=== PATIENT | female | born 1970 ===

== ENCOUNTER 2017-01-02 15:21 | Emergency (ER) | payer OTHER ==
[2017-01-02 15:21] VITALS: BMI 29.0
[2017-01-02 15:27] VITALS: BP 129/83; PULSE 83; RESP 18; TEMP 98.4; O2SAT 97
--- NOTE | 2017-01-02 15:55 | C.PDOC ---
History Of Present Illness 46 year old female presents to the ED with complaints of cough, nasal congestion , frontal headache, and subjective fever. Patient notes symptoms began 2 weeks ago but with one daily dose of Advil the symptoms had improved but worsened last night. She notes she has sick contacts, her children are flu-like symptoms and has pain to the tip of the nose and associated redness and swelling. Patient denies diarrhea, vomiting, or shortness of breath. Time Seen by Provider: 01/02/17 15:32 Chief Complaint (Nursing): Cough, Cold, Congestion History Per: Patient History/Exam Limitations: no limitations Onset/Duration Of Symptoms: Hrs (symptoms worsened last night ), Persistent (2 weeks) Current Symptoms Are (Timing): Still Present Recent travel outside of the [place]: No Past Medical History Reviewed: Historical Data, Nursing Documentation, Vital Signs Vital Signs: Last Vital Signs Temp 98.4 F 01/02/17 15:23 Pulse 83 01/02/17 15:23 Resp 18 01/02/17 15:23 BP 129/83 01/02/17 15:23 Pulse Ox 97 01/02/17 16:25 Family History: States: Unknown Family Hx - Social History Hx Tobacco Use: No Hx Alcohol Use: No Hx Substance Use: No - Immunization History Hx Tetanus Toxoid Vaccination: No Hx Influenza Vaccination: Yes (6 months ago) Hx Pneumococcal Vaccination: No Review Of Systems Constitutional: Positive for: Fever (subjective fever ). Negative for: Chills, Sweats ENT: Positive for: Nose Congestion Cardiovascular: Negative for: Chest Pain, Palpitations Respiratory: Positive for: Cough. Negative for: Shortness of Breath Gastrointestinal: Negative for: Nausea, Vomiting, Abdominal Pain, Diarrhea Neurological: Positive for: Headache (frontal headache ) Physical Exam - Physical Exam Appears: Non-toxic, No Acute Distress, Other (face appears flushed ) Skin: Warm, Dry Head: Atraumatic Eye(s): bilateral: Other (patients eyes appear watery; conjuctiva injected ) Ear(s): Bilateral: TM Erythema Nose: Tenderness (tenderness to the tip of the nose consistent with pimple ) Oral Mucosa: Moist Throat: Erythema, No Exudate Neck: Supple Chest: Symmetrical, No Deformity Cardiovascular: Rhythm Regular Extremity: Normal ROM, No Tenderness Neurological/Psych: Oriented x3 ED Course And Treatment O2 Sat by Pulse Oximetry: 97 (room air ) Medical Decision Making Medical Decision Making: Patient agreed with supportive care. Disposition Counseled Patient/Family Regarding: Diagnosis, Need For Followup - Disposition Referrals: [facility] at [facility] [Outside] Disposition: HOME/ ROUTINE Disposition Time: 15:54 Condition: STABLE Additional Instructions: Kait lisa mina. Tamkathy puede beber t con miel y limn (siempre y cuando no son alrgicos). Hacer zac mezcla de miel, limn y jengibre y utilizarlo para calmar la garganta y la tos. Seguimiento en la clnica o con kelly mdico habitual. Vuelva al emrgency con cualquier queja adicional. Instructions: Upper Respiratory Infection (ED) Forms: Gen Discharge Inst Kinyarwanda - POA Present On Arrival: None - Clinical Impression Clinical Impression: Viral disease, Influenza-like illness - Scribe Statement The provider has reviewed the documentation as recorded by the Scribe Jesenia Harper All medical record entries made by the Scribe were at my direction and personally dictated by me. I have reviewed the chart and agree that the record accurately reflects my personal performance of the history, physical exam, medical decision making, and the department course for this patient. I have also personally directed, reviewed, and agree with the discharge instructions and disposition.
== END 2017-01-02 16:15 | disposition home or self-care (01) ==
LOC: C.ER 15:21
DX: B34.9 Viral infection, unspecified (principal)

== ENCOUNTER 2018-05-24 09:57 | Emergency (ER) | payer OTHER, SELFPAY ==
[2018-05-24 09:57] VITALS: BMI 29.7
[2018-05-24] MEDS ORDERED: Lidocaine 5% Patch TD STA (11:17)
[2018-05-24] MEDS ORDERED: Naproxen 550 mg Tab PO STA (11:17)
[2018-05-24] MEDS ORDERED: Lidocaine 5% Patch TD ONE (12:00)
[2018-05-24] MEDS ORDERED: Naproxen 550 mg Tab PO ONE (12:00)
--- NOTE | 2018-05-24 12:05 | C.PDOC ---
Time Seen by Provider: 05/24/18 10:45 Chief Complaint (Nursing): Hip Pain Past Medical History Family History: States: Unknown Family Hx - Social History Hx Tobacco Use: No Hx Alcohol Use: No Hx Substance Use: No - Immunization History Hx Tetanus Toxoid Vaccination: No Hx Influenza Vaccination: No Hx Pneumococcal Vaccination: No Disposition - Disposition Disposition: HOME/ ROUTINE Disposition Time: 12:00 Condition: STABLE Additional Instructions: Vaya a kelly mdico o la clnica en 1-3 henry sin falta, para mas evaluacin. [place] los medicamentos cindi indicado. Volver a la casey de emergencia en cualquier momento si los sntomas persisten o empeoran. Prescriptions: Naproxen [Naprosyn] 1 tab PO BID PRN #20 tab PRN Reason: Pain Instructions: Sciatica (DC) Print Language: SERBIAN
--- NOTE | 2018-05-24 12:05 | C.PDOC ---
History Of Present Illness 47 year old female presents to the ED for evaluation of right buttock pain that began last night. She notes the pain is worse with movement. Patient reports she fell approximately 1 month ago though had no pain after the fall. Denies fever, nausea, vomiting, sensory changes, abdominal pain, urinary or bowel incontinence, pain with BM, perirectal pain, dysuria, or any other associated symptoms. Time Seen by Provider: 05/24/18 10:45 Chief Complaint (Nursing): Hip Pain History Per: Patient History/Exam Limitations: no limitations Onset/Duration Of Symptoms: Days Current Symptoms Are (Timing): Still Present Past Medical History Reviewed: Historical Data, Nursing Documentation, Vital Signs Family History: States: Unknown Family Hx - Social History Hx Tobacco Use: No Hx Alcohol Use: No Hx Substance Use: No - Immunization History Hx Tetanus Toxoid Vaccination: No Hx Influenza Vaccination: No Hx Pneumococcal Vaccination: No Review Of Systems Except As Marked, All Systems Reviewed And Found Negative. Constitutional: Negative for: Fever Gastrointestinal: Negative for: Nausea, Vomiting, Abdominal Pain Genitourinary: Negative for: Dysuria, Incontinence (urinary or bowel. ) Neurological: Negative for: Weakness, Numbness, Incoordination Physical Exam - Physical Exam Appears: Well, Non-toxic, No Acute Distress Skin: Normal Color, Warm, Dry Head: Atraumatic, Normacephalic Eye(s): bilateral: Normal Inspection, EOMI Nose: Normal Oral Mucosa: Moist Neck: Normal ROM, Supple Chest: Symmetrical, No Deformity Cardiovascular: Rhythm Regular Respiratory: Normal Breath Sounds, No Rales, No Rhonchi, No Wheezing Gastrointestinal/Abdominal: Normal Exam, Soft, No Tenderness Back: No CVA Tenderness, No Vertebral Tenderness, Other ((+) right buttock tenderness.) Extremity: Normal ROM Neurological/Psych: Oriented x3, Normal Speech, Normal Motor, Normal Sensation ED Course And Treatment O2 Sat by Pulse Oximetry: 100 (RA) Pulse Ox Interpretation: Normal - Other Rad Hip X-ray X-Ray: Viewed By Me, Read By Radiologist Interpretation: FINDINGS: BONES: Normal. No fracture. JOINTS: Normal. SOFT TISSUES: Normal. OTHER FINDINGS: None. IMPRESSION: Normal radiographs of right hip. Progress Note: Plan: Lidoderm. Naproxen. X-ray RT Hip w/ pelvis. On reassessment, patient resting comfortably, no back pain, no fever, no bony tenderness, no numbness, no weakness, no abdominal pain. Patient is ambulatory in the emergency department with no discomfort. Patient was instructed to follow up with physician/clinic in 1-2 days for further evaluation or return to ED if symptoms persist or worsen. Disposition - Disposition Disposition: HOME/ ROUTINE Disposition Time: 13:00 Condition: STABLE Additional Instructions: Vaya a kelly mdico o la clnica en 1-3 henry sin falta, para mas evaluacin. [place] los medicamentos cindi indicado. Volver a la casey de emergencia en cualquier momento si los sntomas persisten o empeoran. 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 - Scribe Statement The provider has reviewed the documentation as recorded by the Scribe (Marifer Tubbs) All medical record entries made by the Scribe were at my direction and personally dictated by me. I have reviewed the chart and agree that the record accurately reflects my personal performance of the history, physical exam, medical decision making, and the department course for this patient. I have also personally directed, reviewed, and agree with the discharge instructions and disposition.
[2018-05-24 12:12] VITALS: BP 132/75; PULSE 67; TEMP 98.3; O2SAT 100
--- NOTE | 2018-05-24 12:25 | RAD ---
PROCEDURE: Right Hip Radiographs. HISTORY: pain COMPARISON: None. FINDINGS: BONES: Normal. No fracture. JOINTS: Normal. SOFT TISSUES: Normal. OTHER FINDINGS: None. IMPRESSION: Normal radiographs of right hip.
[2018-05-24 12:28] VITALS: RESP 16
== END 2018-05-24 12:26 | disposition home or self-care (01) ==
LOC: C.ER 09:57
DX: G57.00 Lesion of sciatic nerve, unspecified lower limb (principal)

== ENCOUNTER 2018-08-10 10:30 | Emergency (ER) | payer OTHER ==
[2018-08-10 10:48] VITALS: BMI 24.5
[2018-08-10 12:05] LABS: SQUAMOUS EPITHIAL 3 /hpf (0-5); URINE BILIRUBIN NEGATIVE (NEGATIVE); URINE BLOOD 1+ (NEGATIVE); URINE CLARITY Clear (Clear); URINE COLOR Yellow (YELLOW); URINE GLUCOSE (UA) NORMAL (Normal); URINE LEUKOCYTE ESTERASE TRACE Leu/uL (Negative); URINE PROTEIN NEGATIVE (NEGATIVE); URINE UROBILINOGEN NORMAL mg/dL (0.2-1.0)
[2018-08-10 13:12] VITALS: BP 104/70; PULSE 77; RESP 18; TEMP 97.4; O2SAT 97
--- NOTE | 2018-08-10 13:44 | RAD ---
Date of service: 08/10/2018 HISTORY: rule out pneumonia COMPARISON: No prior. TECHNIQUE: Chest PA and lateral FINDINGS: LUNGS: No active pulmonary disease. PLEURA: No significant pleural effusion identified. No pneumothorax apparent. CARDIOVASCULAR: No aortic atherosclerotic calcification present. Normal cardiac size. No pulmonary vascular congestion. OSSEOUS STRUCTURES: Thoracic spondylosis present VISUALIZED UPPER ABDOMEN: Normal. OTHER FINDINGS: None. IMPRESSION: No active disease.
--- NOTE | 2018-08-10 14:48 | C.PDOC ---
History Of Present Illness 47 y/o female presents to the ER complaining of fever, headache, dry cough, and generalized myalgias x 1 day. Denies flu shot. Patient has sick contact with grandson at home. Positive sick contact of grandson who was diagnosed with Flu A yesterday. Has not taken any medications for symptoms. Tolerating PO. Denies abdominal pain, N/V/D, dizziness, vision changes, CP, SOB, neck pain, back pain, urinary symptoms, or any other complaint. Time Seen by Provider: 08/10/18 11:17 Chief Complaint (Nursing): Cough, Cold, Congestion History Per: Patient History/Exam Limitations: no limitations Onset/Duration Of Symptoms: Days Current Symptoms Are (Timing): Still Present Severity: Moderate Past Medical History Reviewed: Historical Data, Nursing Documentation, Vital Signs Vital Signs: Last Vital Signs Temp 97.4 F L 08/10/18 13:12 Pulse 77 08/10/18 13:12 Resp 18 08/10/18 13:12 BP 104/70 08/10/18 13:12 Pulse Ox 97 08/10/18 13:12 - Medical History PMH: No Chronic Diseases Other Surgeries: Hx of surgeries Family History: States: No Known Family Hx - Social History Hx Tobacco Use: No Hx Alcohol Use: No Hx Substance Use: No - Immunization History Hx Tetanus Toxoid Vaccination: No Hx Influenza Vaccination: No Hx Pneumococcal Vaccination: No Review Of Systems Except As Marked, All Systems Reviewed And Found Negative. Constitutional: Positive for: Fever. Negative for: Chills Eyes: Negative for: Vision Change ENT: Positive for: Nose Congestion. Negative for: Throat Pain Cardiovascular: Negative for: Chest Pain, Palpitations Respiratory: Positive for: Cough. Negative for: Shortness of Breath Gastrointestinal: Negative for: Nausea, Vomiting, Abdominal Pain Genitourinary: Negative for: Dysuria, Frequency Musculoskeletal: Negative for: Neck Pain, Back Pain, Other (neck pain) Skin: Negative for: Rash Neurological: Positive for: Headache. Negative for: Weakness, Numbness, Dizziness Physical Exam - Physical Exam Appears: Well, Non-toxic, No Acute Distress Skin: Normal Color, Warm, Dry Head: Atraumatic, Normacephalic Eye(s): bilateral: Normal Inspection, PERRL, EOMI Ear(s): Bilateral: Normal Nose: Normal Oral Mucosa: Moist Throat: Normal, No Erythema, No Exudate Neck: Normal, Normal ROM, Supple, No Other (No meningeal signs) Chest: Symmetrical Cardiovascular: Rhythm Regular Respiratory: Normal Breath Sounds, No Rales, No Rhonchi, No Wheezing Gastrointestinal/Abdominal: Normal Exam, Soft, No Tenderness, No Guarding, No Rebound Back: Normal Inspection, No CVA Tenderness, No Vertebral Tenderness, No Paraspinal Tenderness Extremity: Normal ROM, Capillary Refill (<2s) Extremity: Bilateral: Atraumatic, No Pedal Edema, Normal Color And Temperature, Normal ROM Pulses: Left Radial: Normal, Right Radial: Normal Neurological/Psych: Oriented x3, Normal Speech, Normal Motor, Normal Sensation Gait: Steady ED Course And Treatment - Laboratory Results Lab Results: Urine Color Yellow (YELLOW) 08/10/18 11:55 Urine Clarity Clear (Clear) 08/10/18 11:55 Urine pH 6.0 (5.0-8.0) 08/10/18 11:55 Ur Specific [place] 1.014 (1.003-1.030) 08/10/18 11:55 Urine Protein Negative mg/dL (NEGATIVE) 08/10/18 11:55 Urine Glucose (UA) Normal mg/dL (Normal) 08/10/18 11:55 Urine Ketones Negative mg/dL (NEGATIVE) 08/10/18 11:55 Urine Blood 1+ (NEGATIVE) H 08/10/18 11:55 Urine Nitrate Negative (NEGATIVE) 08/10/18 11:55 Urine Bilirubin Negative (NEGATIVE) 08/10/18 11:55 Urine Urobilinogen Normal mg/dL (0.2-1.0) 08/10/18 11:55 Ur Leukocyte Esterase Trace Jese/uL (Negative) 08/10/18 11:55 Urine WBC (Auto) 1 /hpf (0-5) 08/10/18 11:55 Urine RBC (Auto) 4 /hpf (0-3) H 08/10/18 11:55 Ur Squamous Epith Cells 3 /hpf (0-5) 08/10/18 11:55 O2 Sat by Pulse Oximetry: 97 (RA) Pulse Ox Interpretation: Normal - Radiology CXR: Interpreted by Me, Viewed By Me CXR Interpretation: Yes: No Acute Disease Medical Decision Making Medical Decision Making: Plan: --CXR --UA --Flu Swab --Tylenol PO --Tamiflu PO Updates: Flu A POSITIVE, will treat with Tamiflu Labwork otherwise unremarkable CXR negative for active disease as read by me On re-evaluation, patient feels better. Advised to followup with PMD or clinic tomorrow and increase fluids, take tamiflu as prescribed. Pt states she will followup as instructed. Diagnostic testing results and plan of care discussed with patient. Strict instructions given regarding prescription use, importance of followup, and signs/symptoms to return to ER including dizziness, abdominal pain, chest pain, SOB, or any other new/worsening symptoms. Pt verbalized understanding of discussion. Patient is A&Ox3, ambulating with steady gait, with vital signs stable for discharge. Disposition - Disposition Referrals: [facility] at [facility] [Outside] Disposition: HOME/ ROUTINE Disposition Time: 13:00 Condition: IMPROVED Additional Instructions: Aumentar los fluidos [place], no actividad vigorosa. Tamiflu cada 12 horas para 9 dosis ms (5 henry en total) Seguimiento con mdico primario en 2 henry. 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 - Scribe Statement The provider has reviewed the documentation as recorded by the Yamilkaibvita Naqvi Provider Attestation All medical record entries made by the Scribe were at my direction and personally dictated by me. I have reviewed the chart and agree that the record accurately reflects my personal performance of the history, physical exam, medical decision making, and the department course for this patient. I have also personally directed, reviewed, and agree with the discharge instructions and disposition.
== END 2018-08-10 13:13 | disposition home or self-care (01) ==
LOC: C.ER 10:30
DX: J09.X2 Influenza due to identified novel influenza A virus with other respiratory manifestations (principal)